=== PATIENT | male | born 1990 | race Caucasian/White ===

== ENCOUNTER 2024-11-22 23:49 | Emergency (ER) | payer SELFPAY ==
[~2024-11-22] VITALS: Ht 177.8 cm; Wt 83.9 kg
[~2024-11-22 23:49] MED LIST: AMOXICILLIN500 MG OR; AMOXICILLIN500 MG PO; AUGMENTIN500TAB PO; AUGMENTIN875TAB PO; CEPHALEXIN500 M1 PO; FLOXIN OTIC0.3 % OT; NO
[2024-11-23] VITALS: BP 114/72
[2024-11-23 00:19] LABS: BASO% 0.7 % (0-3); EOS% 2.8 % (0-8); IMMATURE GRANULOCYTES 0.7 % (0.0-5.0); LYMPH% 19.8 % (15-41); MEAN CORPUSCULAR HGB 31.3 pG CALC (26.0-32.0); MEAN CORPUSCULAR HGB CONC 32.1 g/dL CAL (32.0-36.0); MONO% 14.3 % (2-13); NEUT# 4.48 thou/uL (1.82-7.42); NEUT% 61.7 % (42-76); RED BLOOD COUNT 4.06 mill/uL (4.70-6.10); RED CELL DISTRI WIDTH 13.5 % (11.5-15.5)
[2024-11-23 00:23] LABS: HEMATOCRIT 39.6 % (39.0-50.0); HEMOGLOBIN 12.7 g/dl (14.0-18.0); MEAN CELL VOLUME 97.5 fL CALC (80.0-100.0)
[2024-11-23 00:41] LABS: ALBUMIN 4.3 g/dL (3.2-5.0); CREATININE 0.8 mg/dL (0.7-1.3); POTASSIUM 3.9 mmol/l (3.5-5.1); TOTAL PROTEIN 7.5 g/dL (6.3-8.2)
[2024-11-23 00:42] LABS: CPK 92 u/l (55-170)
[2024-11-23 00:42] LABS: BILIRUBIN, TOTAL 0.6 mg/dL (0.2-1.3)
[2024-11-23 00:43] LABS: ETHYL ALCOHOL < 10 mg/dl (0-30)
[2024-11-23 02:31] LABS: URINE BILIRUBIN - DIPSTICK Negative (NEGATIVE); URINE BLOOD DIPSTICK Trace-intact (NEGATIVE); URINE GLUCOSE - DIPSTICK Negative (NEGATIVE); URINE KETONE Negative (NEGATIVE); URINE LEUK ESTERASE Negative (NEGATIVE); URINE NITRITE - DIPSTICK Negative (Negative); URINE PROTEIN - DIPSTICK Negative (NEG-TRACE); URINE SPECIFIC GRAVITY 1.015; URINE UROBILINOGEN - DIPSTICK 0.2 E.U./dL (0.2)
[2024-11-23 02:32] LABS: URINE COLOR Yellow
[2024-11-23 03:00] VITALS: BP 122/71
== END 2024-11-23 03:00 | disposition home or self-care (01) | DRG 897 ==
LOC: ED 23:49
PROVIDERS: Family Medicine
DX: F19.10 Other psychoactive substance abuse, uncomplicated (principal); Z59.01 Sheltered homelessness; Z63.4 Disappearance and death of family member
CPT/HCPCS: Q9967